=== PATIENT | male | born 1985 | race Two or more races ===

== ENCOUNTER 2021-02-15 11:53 | Inpatient (IN) | payer MEDICAID, OTHER ==
[~2021-02-15] VITALS: Ht 177.8 cm; Wt 94.3 kg
[2021-02-15] MEDS ORDERED: methylPREDNISolone SOD SUCC 125 MG/2 ML VL IV ONE (12:15)
[2021-02-15 12:41] LABS: Basophils # (auto) 0.1 10 ^3/uL (0-0.2); Basophils % (auto) 0.7 % (0.0-2.0); Eosinophils # (auto) 0.1 10 ^3/uL (0-0.8); Monocytes # (auto) 0.5 10 ^3/uL (0-1.3); Nucleated Red Blood Cells % 0.1 %; Red Cell Distribution Width 13.7 % (11.8-14.3)
[2021-02-15 12:43] LABS: Eosinophils % (auto) 0.8 % (0.0-7.0); Hematocrit 52.5 % (41.0-53.0); Hemoglobin 18.1 g/dL (13.5-17.5); Lymphocytes # (auto) 1.2 10 ^3/uL (0.4-5.4); Lymphocytes % (auto) 9.8 % (10.0-50.0); Mean Corpuscular Hemoglobin 30.3 pg (28.0-32.0); Mean Corpuscular Hgb Conc. 34.5 g/dL (32.0-36.0); Mean Corpuscular Volume 87.9 fL (80.0-100.0); Monocytes % (auto) 3.9 % (0.0-12.0); Neutrophils # (auto) 10.1 10 ^3/uL (1.6-8.6); Neutrophils % (auto) 84.8 % (37.0-80.0); Red Blood Cells 5.97 10^6/uL (4.5-5.90)
[2021-02-15 12:58] LABS: Albumin 4.6 g/dL (3.4-5.0); Calcium 9.8 mg/dL (8.5-10.1); Magnesium 2.3 mg/dL (1.6-2.6); Potassium 3.9 mmol/L (3.5-5.1)
[2021-02-15 13:07] LABS: BUN/Creatinine Ratio 4.9; Bilirubin, Total 0.7 mg/dL (0.2-1.0); CRP High Sensitivity 6.01 mg/dL (< 0.3); Total Protein 9.4 g/dL (6.4-8.2)
[2021-02-15 13:37] LABS: Urine WBC None Seen /hpf (0 - 3)
[2021-02-15 13:43] LABS: Urine Bacteria NONE SEEN /hpf (None Seen); Urine Blood Negative /uL (Negative); Urine Specific Gravity 1.004 (1.001-1.035)
[2021-02-15] MEDS ORDERED: MORPHINE SULFATE 4 MG/ML SYR/VIAL IV ONE ×2 (14:15→18:30)
[2021-02-15] MEDS ORDERED: ONDANSETRON HCL 4 MG/2 ML VIAL IV ONE ×2 (14:15→18:30)
[2021-02-15] MEDS ORDERED: IOHEXOL 350 MG/ML 100ML IJ ONE (15:06)
[2021-02-15] MEDS ORDERED: NITROGLYCERIN 0.4 MG SL TAB SL PRN (22:15)
[2021-02-15] MEDS ORDERED: MORPHINE SULFATE INJECTION 2 MG/ML SYRG IV PRN (22:15)
[2021-02-15] MEDS: AZITHROMYCIN 500MG/ 250ML 250 ML IV SCH (22:43)
[2021-02-15 23:55] LABS: Alcohol, Urine < 3.0 mg/dL (0-10); Amphetamine Screen, Urine NEGATIVE (NEGATIVE); Barbiturate Scree,Urine NEGATIVE (NEGATIVE); Benzodiazephine Screen, Urine NEGATIVE (NEGATIVE); Cannabinoid Screen, Urine POSITIVE (NEGATIVE); Cocaine Screen, Urine NEGATIVE (NEGATIVE); Phencyclidine Screen, Urine NEGATIVE (NEGATIVE)
[2021-02-16 00:04] LABS: Opiate Scree,Urine NEGATIVE (NEGATIVE)
[2021-02-16] MEDS: ONDANSETRON HCL 4 MG/2 ML VIAL IV PRN ×2 (00:50→05:38)
[2021-02-16] MEDS: MORPHINE SULFATE INJECTION 2 MG/ML SYRG IV PRN ×4 (00:51→21:08)
[2021-02-16] MEDS ORDERED: ALBUTEROL SULF HFA 90MCG INH 200DOSE IN SCH (02:00)
[2021-02-16 05:41] LABS: Basophils # (auto) 0.1 10 ^3/uL (0-0.2); Basophils % (auto) 0.4 % (0.0-2.0); Eosinophils # (auto) 0 10 ^3/uL (0-0.8); Hematocrit 49.3 % (41.0-53.0); Hemoglobin 17.4 g/dL (13.5-17.5); Lymphocytes # (auto) 0.8 10 ^3/uL (0.4-5.4); Lymphocytes % (auto) 5.8 % (10.0-50.0); Mean Corpuscular Hemoglobin 30.6 pg (28.0-32.0); Mean Corpuscular Hgb Conc. 35.3 g/dL (32.0-36.0); Mean Corpuscular Volume 86.7 fL (80.0-100.0); Monocytes # (auto) 0.7 10 ^3/uL (0-1.3); Monocytes % (auto) 5.3 % (0.0-12.0); Neutrophils # (auto) 11.8 10 ^3/uL (1.6-8.6); Neutrophils % (auto) 88.5 % (37.0-80.0); Red Blood Cells 5.68 10^6/uL (4.5-5.90); Red Cell Distribution Width 13.4 % (11.8-14.3); White Blood Cell 13.3 10^3/uL (4.4-10.8)
[2021-02-16 06:22] LABS: Chloride 100 mmol/L (98-107); Sodium 133 mmol/L (136-145)
[2021-02-16 06:34] LABS: Alanine Aminotransferase 51 U/L (16-61); Albumin 4.2 g/dL (3.4-5.0); Alkaline Phosphatase 64 U/L (45-117); Anion Gap 9 (5-15); Aspartate Aminotransferase 20 U/L (15-37); BUN/Creatinine Ratio 7.2; Bilirubin, Total 0.5 mg/dL (0.2-1.0); Blood Urea Nitrogen 10 mg/dL (7-18); Calcium 9.3 mg/dL (8.5-10.1); Carbon Dioxide 24 mmol/L (21-32); GFR African American 75 mL/min; GFR Non-African American 62 mL/min; Glucose 93 mg/dL (74-106); Total Protein 9.2 g/dL (6.4-8.2)
[2021-02-16 09:25] VITALS: BP 133/88
[2021-02-16] MEDS: ASPirin-EC 81 mg tab PO SCH (09:56)
[2021-02-16] MEDS: ALBUTEROL SULF 2.5 MG/0.5ML(0.5%) NEB SOLN NEB SCH ×4 (10:03→23:49)
[2021-02-16] MEDS: AZITHROMYCIN 500MG/ 250ML 250 ML IV SCH (21:25)
[2021-02-16 22:00] VITALS: BP 153/106
[2021-02-17] MEDS ORDERED: PANT40TA2 PO (02:03)
[2021-02-17] MEDS ORDERED: LOSA25TA38 PO (02:03)
[2021-02-17] MEDS: MORPHINE SULFATE INJECTION 2 MG/ML SYRG IV PRN (03:33)
[2021-02-17] MEDS: ALBUTEROL SULF 2.5 MG/0.5ML(0.5%) NEB SOLN NEB SCH ×3 (07:07→14:00)
[2021-02-17 08:00] VITALS: BP 149/93
[2021-02-17] MEDS ORDERED: guaiFENesin-DM 100/10mg/5ml SYR PO PRN (08:30)
[2021-02-17] MEDS ORDERED: cefTRIAXone 1GM/50ML D5W 50 ML IV SCH (09:00)
[2021-02-17] MEDS: ASPirin-EC 81 mg tab PO SCH (09:02)
[2021-02-17 09:16] VITALS: BP 149/93
[2021-02-17] MEDS ORDERED: predniSONE 20 MG TAB PO SCH (10:00)
[2021-02-17 12:29] VITALS: BP 145/81
[2021-02-17 13:25] VITALS: BP 145/81
== END 2021-02-17 14:05 | disposition home or self-care (01) | DRG 145 ==
LOC: ER 11:53 → TELE 22:11 → TELE-CENTR 02-16 20:26
PROVIDERS: ADMIT Hospitalist; ATTEND Hospitalist
DX: J20.9 Acute bronchitis, unspecified (principal); J18.9 Pneumonia, unspecified organism; F12.90 Cannabis use, unspecified, uncomplicated; R07.89 Other chest pain; Z20.822 Contact with and (suspected) exposure to COVID-19; F17.210 Nicotine dependence, cigarettes, uncomplicated; I10 Essential (primary) hypertension; Z82.49 Family history of ischemic heart disease and other diseases of the circulatory system; Z83.3 Family history of diabetes mellitus; Z71.6 Tobacco abuse counseling; Z79.899 Other long term (current) drug therapy
CPT/HCPCS: 36415; 71045; 71275; 80053; 80307; 81001; 82728; 83605; 83735; 83880; 84484; 85025; 85379; 86141; 87040; 87426; 93005; 93306; 94640; 96365; 96366; 96375; 96376; 99291; G0378; J0696; J2405

== ENCOUNTER 2021-08-18 20:57 | Emergency (ER) | payer MEDICAID ==
[~2021-08-18] VITALS: Ht 177.8 cm; Wt 88.5 kg
[~2021-08-18 20:57] MED LIST: LOSA25TA38 PO; PANT40TA2 PO
[2021-08-18 21:00] VITALS: BP 154/97
[2021-08-18] MEDS ORDERED: DOXY100C2 PO (23:12)
[2021-08-18] MEDS ORDERED: HYDR-4902 PO (23:12)
[2021-08-18] MEDS ORDERED: cefTRIAXone SODIUM 250 MG VL IM ONE (23:15)
[2021-08-18] MEDS ORDERED: traMADol HCL 50 MG TAB PO ONE (23:15)
[2021-08-19] MEDS ORDERED: LIDOCAINE 1% HCL (LOCAL ANESTH.) INJ 20ML MDV ONE (00:25)
== END 2021-08-19 00:54 | disposition home or self-care (01) ==
LOC: ER 20:58
DX: N49.2 Inflammatory disorders of scrotum (principal); F17.210 Nicotine dependence, cigarettes, uncomplicated; Z79.899 Other long term (current) drug therapy
CPT/HCPCS: 76870; 96372; 99284; J0696; J2001

== ENCOUNTER 2021-09-10 02:48 | Emergency (ER) | payer MEDICAID, OTHER ==
[~2021-09-10] VITALS: Ht 177.8 cm; Wt 95.3 kg
[~2021-09-10 02:48] MED LIST changes: +DOXY100C2 PO; +HYDR-4902 PO
[2021-09-10] MEDS ORDERED: KETOROLAC TROMETH 60MG/2ML VIAL IM ONE (07:00)
[2021-09-10] MEDS ORDERED: PRED20TA2 PO (07:22)
[2021-09-10] MEDS ORDERED: TRAM-297 PO (07:23)
[2021-09-10 07:32] VITALS: BP 143/92
== END 2021-09-10 07:31 | disposition home or self-care (01) ==
LOC: ER 02:55
DX: M51.16 Intervertebral disc disorders with radiculopathy, lumbar region (principal); I10 Essential (primary) hypertension; F17.210 Nicotine dependence, cigarettes, uncomplicated; F12.10 Cannabis abuse, uncomplicated; X50.1XXA Overexertion from prolonged static or awkward postures, initial encounter; Y93.89 Activity, other specified; Y92.89 Other specified places as the place of occurrence of the external cause; Y99.8 Other external cause status
CPT/HCPCS: 72131; 96372; 99284; J1885